=== PATIENT | female | born 1990 | race Caucasian/White ===

== ENCOUNTER 2017-12-01 16:00 | Emergency (ER) | payer SELFPAY ==
[~2017-12-01] VITALS: Ht 167.6 cm; Wt 70.0 kg
[2017-12-01 20:09] LABS: BASOPHILS % 0.9 % (0.0-2.0); EOSINOPHILS % 1.3 % (0.0-5.0); HEMATOCRIT. 36.1 % (36.0-48.0); HEMOGLOBIN. 12.2 g/dL (12.0-16.0); LYMPHOCYTES % 17.6 % (20.0-50.0); MEAN CORPUSCULAR HEMOGLOBIN 28.1 pg (28.0-32.0); MEAN CORPUSCULAR VOLUME 82.9 fL (81.0-99.0); MEAN PLATELET VOLUME 7.4 fl (7.4-10.4); MONOCYTES % 7.5 % (2.0-8.0); NEUTROPHILS % 72.7 % (40.0-76.0); PLATELET 382 x1000/uL (130-400); RED BLOOD CELL COUNT 4.35 mill/uL (4.2-5.4); RED CELL DISTRIBUTION WIDTH 14.5 % (11.6-14.6)
[2017-12-01 20:11] LABS: CHLORIDE 101 mEq/L (98-107)
[2017-12-01 20:50] LABS: HCG SCREEN NEGATIVE
[2017-12-01 20:53] VITALS: BP 117/78
== END 2017-12-01 20:53 | disposition home or self-care (01) ==
LOC: ER 16:00
DX: Z02.2 Encounter for examination for admission to residential institution (principal); F15.20 Other stimulant dependence, uncomplicated; F17.210 Nicotine dependence, cigarettes, uncomplicated
CPT/HCPCS: 36415; 80048; 84703; 85025; 99284

== ENCOUNTER 2020-10-04 03:27 | Emergency (ER) | payer MEDICAID, OTHER ==
[~2020-10-04] VITALS: Ht 162.6 cm; Wt 64.0 kg
[2020-10-04 04:00] VITALS: BP 130/87
[2020-10-04 04:45] LABS: HEMATOCRIT. 27.1 % (36.0-48.0); MEAN CORPUSCULAR HEMOGLOBIN 19.6 pg (28.0-32.0); MEAN CORPUSCULAR VOLUME 66.2 fL (81.0-99.0); MEAN PLATELET VOLUME 7.4 fl (7.4-10.4); PLATELET 354 x1000/uL (130-400); RED BLOOD CELL COUNT 4.09 mill/uL (4.2-5.4); RED CELL DISTRIBUTION WIDTH 18.8 % (11.6-14.6)
[2020-10-04 04:50] LABS: PLATELET ESTIMATE NORMAL
[2020-10-04 04:53] LABS: CHLORIDE 108 mEq/L (98-107)
[2020-10-04 04:57] LABS: ETHANOL BLOOD < 10 mg/dL
[2020-10-04 05:07] LABS: HCG SCREEN POSITIVE
== END 2020-10-04 10:06 | disposition left against medical advice (07) ==
LOC: ER 03:27
DX: O99.891 Other specified diseases and conditions complicating pregnancy (principal); S09.8XXA Other specified injuries of head, initial encounter; Y00.XXXA Assault by blunt object, initial encounter; Z3A.18 18 weeks gestation of pregnancy; Y93.89 Activity, other specified; Y92.59 Other trade areas as the place of occurrence of the external cause
CPT/HCPCS: 36415; 80053; 80320; 84703; 85025; 93005; 99284; G0480